=== PATIENT | female | born 1980 | race Caucasian/White ===

== ENCOUNTER → 2017-09-08 | Outpatient (CLI) | payer BC | END | disposition home or self-care (01) | LOC: C.LAB1850 10:24 | PROVIDERS: ATTEND Obstetrics & Gynecology | DX: G47.00 Insomnia, unspecified (principal); Z91.89 Other specified personal risk factors, not elsewhere classified ==

== ENCOUNTER → 2017-09-08 | Outpatient (CLI) | payer BC | END | disposition home or self-care (01) | LOC: C.PAPS 13:40 | PROVIDERS: ATTEND Obstetrics & Gynecology | DX: Z01.419 Encounter for gynecological examination (general) (routine) without abnormal findings (principal) ==